=== PATIENT | female | born 1995 ===

== ENCOUNTER 2021-02-11 21:01 | Inpatient (IN) | payer OTHER ==
[2021-02-11] MEDS ORDERED: Ondansetron 4 MG/2 ML SDV IVPUSH PRN (21:05)
[2021-02-11] MEDS ORDERED: Carboprost Tromethamine 250 MCG/1 ML Amp IM PRN (21:05)
[2021-02-11] MEDS ORDERED: Sodium Chloride 0.9% 10 ML Syringe FLUSH PRN (21:05)
[2021-02-11] MEDS ORDERED: Water For Irrigation,Sterile 1,000 ML Container IRR PRN (21:05)
[2021-02-11] MEDS ORDERED: Tranexamic Acid 1,000 MG in Sodium Chloride 0.9% 100 ML IV PRN (21:05)
[2021-02-11] MEDS ORDERED: Methylergonovine 0.2 MG/1 ML Amp IM PRN (21:05)
[2021-02-11] MEDS ORDERED: Sodium Chloride 0.9% 10 ML SDV IV PRN (21:05)
[2021-02-11] MEDS ORDERED: Sodium Chloride 0.9% 2.5 ML Syringe FLUSH PRN (21:05)
[2021-02-11] MEDS ORDERED: Lidocaine 1% 50 ML MDV INJECT PRN (21:05)
[2021-02-11] MEDS ORDERED: Terbutaline 1 MG/ML SDV SUBCUT PRN (21:05)
[2021-02-11] MEDS ORDERED: Nalbuphine 10 MG/1 ML Vial IVPUSH PRN (21:05)
[2021-02-11] MEDS ORDERED: Misoprostol 200 MCG Tab PO PRN (21:05)
[2021-02-11] MEDS ORDERED: Oxytocin/0.9 % Sodium Chloride 30 UNIT/500 ML BAG IV SCH ×2 (21:15)
[2021-02-11] MEDS: Misoprostol 25 MCG (1/4 of 100 MCG) Tab VAG PRN (21:54)
[2021-02-12] MEDS: Misoprostol 25 MCG (1/4 of 100 MCG) Tab VAG PRN ×3 (02:05→10:17)
[2021-02-12] MEDS: Butorphanol 1 MG/ML SDV IVPUSH PRN ×2 (11:49→14:05)
[2021-02-12 12:09] LABS: BLOOD UREA NITROGEN,BUN 8 mg/dL (7.0-18.0); CARBON DIOXIDE,CO2 18.8 mmol/L (21.0-32.0); CHLORIDE,CL 105 mmol/L (98-107); GLUCOSE RANDOM 84 mg/dL (74-106); POTASSIUM,K 4.5 mmol/L (3.5-5.1); SODIUM,NA 139 mmol/L (136-145)
--- NOTE | 2021-02-12 12:37 | PCM.PREANE ---
Preanesthetic Assessment - Anesthesia/Transfusion/Family Hx Anesthesia History: Prior Anesthesia Without Reaction Family History of Anesthesia Reaction: No Transfusion History: No Prior Transfusion(s) - Physical Assessment NPO Status Date: 02/12/21 NPO Status Time: 08:00 Height: 1.55 m Weight: 82.1 kg ASA Class: 2 - Lab Values: Laboratory Last Values WBC 12.00 K/uL (4.0-11.0) H 02/11/21 21: RBC 3.85 M/uL (4.30-5.90) L 02/11/21 21: Hgb 11.8 g/dL (12.0-16.0) L 02/11/21 21: Hct 35.5 % (36.0-46.0) L 02/11/21 21: MCV 92.2 fL (80.0-98.0) 02/11/21 21: MCH 30.6 pg (27.0-32.0) 02/11/21 21: MCHC 33.2 g/dL (31.0-37.0) 02/11/21 21: RDW Std Deviation 42.7 fl (28.0-62.0) 02/11/21 21: RDW Coeff of Mary Lou 13 % (11.0-15.0) 02/11/21 21: Plt Count 305 K/uL (150-400) 02/11/21 21: MPV 11.10 fL (7.40-12.00) 02/11/21 21: Nucleated RBC % 0.0 /100WBC 02/11/21 21: Nucleated RBCs # 0 K/uL 02/11/21 21:33 Sodium 139 mmol/L (136-145) 02/12/21 11:28 Potassium 4.5 mmol/L (3.5-5.1) 02/12/21 11:28 Chloride 105 mmol/L (98-107) 02/12/21 11:28 Carbon Dioxide 18.8 mmol/L (21.0-32.0) L 02/12/21 11:28 BUN 8 mg/dL (7.0-18.0) 02/12/21 11:28 Creatinine 0.7 mg/dL (0.6-1.0) 02/12/21 11:28 Est Cr Clr Drug Dosing 93.51 mL/min 02/12/21 11:28 Estimated GFR (MDRD) > 60.0 ml/min 02/12/21 11:28 Glucose 84 mg/dL (74-106) 02/12/21 11:28 Uric Acid 6.2 mg/dL (2.6-7.2) 02/12/21 11:28 Calcium 8.8 mg/dL (8.5-10.1) 02/12/21 11:28 Total Bilirubin 0.3 mg/dL (0.2-1.0) 02/12/21 11:28 AST 17 IU/L (15-37) 02/12/21 11:28 ALT 20 IU/L (14-63) 02/12/21 11:28 Alkaline Phosphatase 198 U/L (46-116) H 02/12/21 11:28 Total Protein 7.1 g/dL (6.4-8.2) 02/12/21 11:28 Albumin 3.0 g/dL (3.4-5.0) L 02/12/21 11:28 Globulin 4.1 g/dL (2.6-4.0) H 02/12/21 11:28 Albumin/Globulin Ratio 0.7 (0.9-1.6) L 02/12/21 11:28 Blood Type O POSITIVE 02/11/21 21:33 Antibody Screen NEGATIVE 02/11/21 21:33 - Allergies Allergies/Adverse Reactions: Allergies Allergy/AdvReac Type Severity Reaction Status Date / Time nitrofurantoin Allergy Facial Verified 02/10/21 14:49 [From Macrobid] Swelling - Acknowledgements Anesthesia Type Planned: Epidural Pt an Appropriate Candidate for the Planned Anesthesia: Yes Alternatives and Risks of Anesthesia Discussed w Pt/Guardian: Yes Pt/Guardian Understands and Agrees with Anesthesia Plan: Yes PreAnesthesia Questionnaire HEENT History: Reports: None Respiratory History: Reports: Asthma [employer]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: Psychiatric History: Reports: ADHD, Anxiety, Depression - Past Surgical History HEENT Surgical History: Reports: Oral Surgery Respiratory Surgical History: Reports: None - SUBSTANCE USE Tobacco Use Status *Q: Former Tobacco User Tobacco Use Within Last Twelve Months: Cigarettes Recreational Drug Use History: No - CURRENT (IN HOUSE) MEDS Current Meds: Current Medications Butorphanol Tartrate (Butorphanol 1 Mg/Ml Sdv) 1 mg IVPUSH Q1H PRN PRN Reason: Pain (severe 7-10) Last Admin: 02/12/21 11:49 Dose: 1 mg Documented by: Carboprost Tromethamine (Carboprost Tromethamine 250 Mcg/1 Ml Amp) 250 mcg IM ASDIRECTED PRN PRN Reason: Post Hemorrhage Oxytocin/Sodium Chloride (Oxytocin 30 Unit/500 Ml-Ns) 30 unit in 500 mls @ 999 mls/hr IV TITRATE JEEVAN Tranexamic Acid 1,000 mg/ (Sodium Chloride) 110 mls @ 660 mls/hr IV ONETIME PRN PRN Reason: Bleeding Oxytocin/Sodium Chloride (Oxytocin 30 Unit/500 Ml-Ns) 30 unit in 500 mls @ 2 mls/hr IV TITRATE JEEVAN; Protocol Lactated Ringer's (Ringers, Lactated) 1,000 mls @ 150 mls/hr IV ASDIRECTED JEEVAN Lidocaine HCl (Lidocaine 1% 50 Ml Mdv) 50 ml INJECT ONETIME PRN PRN Reason: Laceration repair Methylergonovine Maleate (Methylergonovine 0.2 Mg/1 Ml Amp) 0.2 mg IM ASDIRECTED PRN PRN Reason: Post Hemorrhage Misoprostol (Misoprostol 200 Mcg Tab) 200 mcg PO ONETIME PRN PRN Reason: Post Hemorrhage Misoprostol (Misoprostol 25 Mcg (1/4 Of 100 Mcg) Tab) 25 mcg VAG Q4H PRN PRN Reason: Cervical Ripening Last Admin: 02/12/21 10:17 Dose: 25 mcg Documented by: Nalbuphine HCl (Nalbuphine 10 Mg/1 Ml Vial) 10 mg IVPUSH Q1H PRN PRN Reason: Pain (severe 7-10) Ondansetron HCl (Ondansetron 4 Mg/2 Ml Sdv) 4 mg IVPUSH Q6H PRN PRN Reason: Nausea/Vomiting Last Admin: 02/12/21 11:50 Dose: 4 mg Documented by: Sodium Chloride (Sodium Chloride 0.9% 10 Ml Syringe) 10 ml FLUSH ASDIRECTED PRN PRN Reason: Keep Vein Open Sodium Chloride (Sodium Chloride 0.9% 2.5 Ml Syringe) 2.5 ml FLUSH ASDIRECTED PRN PRN Reason: Keep Vein Open Sodium Chloride (Sodium Chloride 0.9% 10 Ml Sdv) 10 ml IV ASDIRECTED PRN PRN Reason: IV Use Sterile Water (Water For Irrigation,Sterile 1,000 Ml Container) 1,000 ml IRR ASDIRECTED PRN PRN Reason: delivery Terbutaline Sulfate (Terbutaline 1 Mg/Ml Sdv) 0.25 mg SUBCUT ASDIRECTED PRN PRN Reason: Tacysystole
[2021-02-12] MEDS: Lactated Ringers 1,000 ML IV SCH ×2 (14:00→17:25)
[2021-02-12] MEDS ORDERED: fentaNYL 100 MCG/2 ML SDV ONE ×3 (18:30→21:42)
[2021-02-12] MEDS ORDERED: Ropivacaine HCl/PF 200 ML ONE (18:30)
[2021-02-12] MEDS ORDERED: Phenylephrine/Normal Saline 100 MCG/ML 10 ML Syringe IVPUSH PRN (18:56)
[2021-02-12] MEDS ORDERED: ePHEDrine 50 MG/ML SDV IVPUSH PRN (18:56)
--- NOTE | 2021-02-12 18:56 | PCM.PRNOTE ---
- Free Text/Narrative Note: Anes Note Patietn requests epidural for L&D. Sitting position. Level L3-L4 midline appraoch. Sterle technique. Chloraprep scrub to lumbar area. Sterile fenestrated drape applied. Epidural space easily achieved single attempt with ease using ARIANE technique. ARIANE at 3 cm. Cath threaded 5 cm with ease. Cath secured a t skin using sterile clear adhesive dressing. 185 Test 3 cc 1.5% lido with epi negative. 185 Load 10 cc 0.2% ropivicaine with 1 mcg cc fentanyl in slow divided doses. 1857 Pump started wtih 190 cc same solution. Rate is 8 cc hr with 6 cc q 20 min prn bolus. [place] well. Time with patient [id number] Chris Middleton MOLD INJECTOR
[2021-02-12] MEDS ORDERED: Oxytocin 10 Units/1 ML SDV ONE (19:41)
[2021-02-12] MEDS ORDERED: Morphine PF 10 MG/10 ML SDV ONE ×2 (19:41→21:41)
[2021-02-12] MEDS ORDERED: Ondansetron 4 MG/2 ML SDV ONE ×2 (19:45→21:39)
[2021-02-12] MEDS ORDERED: Ketorolac 30 MG/ML SDV ONE ×2 (19:45→21:39)
[2021-02-12] MEDS ORDERED: Sodium Chloride 0.9% 0 ML ONE (19:49)
[2021-02-12] MEDS ORDERED: ceFAZolin 1 GM Vial ONE ×2 (19:49→21:39)
[2021-02-12] MEDS ORDERED: Sugammadex Sodium 200 MG/2 ML VIAL ONE (21:32)
[2021-02-12] MEDS ORDERED: Sodium Chloride 0.9% 20 ML ONE (21:39)
[2021-02-12] MEDS ORDERED: ceFAZolin 2 GM in Premix Bag 1 BAG IV ONE (21:43)
[2021-02-12] MEDS ORDERED: Citric Acid/Sodium Citrate Solution 30 ML Cup PO ONE (21:43)
[2021-02-12] MEDS ORDERED: Lactated Ringers 1,000 ML IV SCH ×2 (21:45→23:00)
[2021-02-12] MEDS ORDERED: Nalbuphine 10 MG/1 ML Vial IVPUSH PRN (22:19)
[2021-02-12] MEDS ORDERED: Oxytocin 10 Units/1 ML SDV IM PRN (22:48)
[2021-02-12] MEDS ORDERED: Bisacodyl 10 MG Supp RECTAL PRN (22:48)
[2021-02-12] MEDS ORDERED: Acetaminophen/oxyCODONE 325-5 MG Tab PO PRN (22:48)
[2021-02-12] MEDS ORDERED: Ondansetron 4 MG/2 ML SDV IVPUSH PRN (22:48)
[2021-02-12] MEDS ORDERED: diphenhydrAMINE 50 MG/ML SDV IVPUSH PRN (22:48)
[2021-02-12] MEDS ORDERED: Lanolin 100% Cream 7 GM Tube TOP PRN (22:48)
--- NOTE | 2021-02-12 22:49 | PCM.POSTAN ---
POST ANESTHESIA ASSESSMENT - MENTAL STATUS Mental Status: Alert - RESPIRATORY Respiratory Status: Respiratory Rate WNL - CARDIOVASCULAR CV Status: Pulse Rate WNL - GASTROINTESTINAL GI Status: No Symptoms - POST OP HYDRATION Hydration Status: Adequate & Stable
--- NOTE | 2021-02-12 22:58 | PCM.OPNOTE ---
- General Post-Op/Procedure Note Date of Surgery/Procedure: 02/12/21 Operative Procedure(s): Primary LTCS Findings: Viable male APGARs 8, 9 weight 5 lb 13 oz. Delivery intact placenta with 3V cord Pre Op Diagnosis: 39/2 week IUP. Gestational HTN. Breech presentation Post-Op Diagnosis: Same Anesthesia Technique: Epidural Primary Surgeon: Andreina Ray Fluid Replacement, Intraop: 1,500 EBL in mLs: 600 Complications: none known Condition: Stable Free Text/Narrative:: Intake & Output 02/12/21 02/12/21 02/12/21 06:59 14:59 22:59 Output Total Balance @ Dictation [id number]
[2021-02-13] MEDS: Ketorolac 30 MG/ML SDV IVPUSH SCH ×5 (00:21→23:42)
[2021-02-13] MEDS: Lactated Ringers 1,000 ML IV SCH (00:45)
[2021-02-13] MEDS: Simethicone 80 MG Tab.Chew PO SCH ×5 (00:51→23:42)
--- NOTE | 2021-02-13 05:23 | OR ---
SURGEON: Andreina Ray M.D. DATE OF PROCEDURE: 02/12/2021 PREOPERATIVE DIAGNOSES: 1. A 39 and 2 weeks' intrauterine . 2. Breech presentation. 3. Gestational hypertension. POSTOPERATIVE DIAGNOSES: 1. A 39 and 2 weeks' intrauterine . 2. Breech presentation. 3. Gestational hypertension. PROCEDURE: Primary low-transverse section. PRIMARY SURGEON: Andreina Ray M.D. ANESTHESIA: Epidural. ESTIMATED BLOOD LOSS: 600 mL. FLUIDS: 1500 mL of crystalloid in the OR. COMPLICATION: None known. FINDINGS: Viable male, Apgars scores 8 at 1 minute and 9 at 5 minutes. Weight is 5 pounds 13 ounces. Delivery of an intact placenta with a 3-vessel cord. DISPOSITION: to the nursery and mom to the PACU in stable condition. PROCEDURE DETAILS: This is a 26-year-old primigravida at 39-2/7 weeks' gestational age, who actually presented on 02/11/2021 for induction of labor due to gestational hypertension. She had been induced with Cytotec and then a Terrell bulb for mechanical dilation. I assumed care on the evening of 02/12/2021. When the Terrell bulb did extravasate, I examined the patient. I could not easily palpate suture lines or cephalic presentation with a bulging bag of water. The patient was found to be 4 to 5 cm dilated; therefore, I performed a bedside ultrasound, which confirmed the fetus to be breech presentation, head at the maternal right. At this juncture, I had discussed with the patient, given the fact that she was already 4 to 5 cm with bulging membranes, it would be best to proceed with a delivery and not attempt external cephalic version. She voiced her understanding of this. She agreed to proceed with a delivery. Risks of the procedure were discussed with her, including infection; bleeding; possible trauma to surrounding bowel, bladder, or ureters; in case of excessive blood loss, need for blood transfusion; in rare lifesaving circumstances, need for hysterectomy; risk for a thromboembolic event; and risk of anesthesia. Proper consent was obtained. The patient was taken to the operating room, where her epidural was re-bolused. She was placed in dorsal supine position with a leftward tilt, SCDs to the lower extremities, Terrell to gravity, and prepped and draped in the usual sterile fashion. Anesthesia was tested and found to be adequate. A Pfannenstiel incision was now incised and carried down to the level of the rectus fascia, which was incised in the midline and lateralized on either side. The superior aspect of the fascia was tented up and dissected sharply and bluntly away from underlying muscles. In a similar fashion, this was performed on the inferior aspect of the fascia. The rectus muscle was and the peritoneum entered. The rectus muscle and peritoneum were now lateralized bluntly. position and uterine position were palpated. A self-retaining retractor was gently placed. The uterovesical reflection was visualized. A bladder flap was created sharply and bluntly. The bladder was mobilized away from the lower uterine segment. A low transverse hysterotomy was now performed. The uterine cavity was entered with a blunt-ended scalpel. The hysterotomy was lateralized bluntly. The buttocks were delivered to the midline. The buttocks were delivered, followed by the right lower extremity, the left lower extremity, the trunk, the right upper extremity, and the left upper extremity. The head was flexed and delivered. The infant's oropharynx and nares were bulb suctioned. The cord was clamped x2 and cut. The infant was handed off to the attending independent living specialist with nursery staff. Cord arterial, cord venous, and cord blood samplings were obtained. The placenta was now delivered. The uterine cavity was cleared of all clot and debris. The hysterotomy was repaired using 0 Vicryl in a continuous running locked fashion, followed by a re-imbricating layer. The posterior aspect of the uterus was inspected. No defects or hematomas were found to be forming. The region was well irrigated and suction dried. The uterus was returned to the abdominal cavity. Colonic gutters were cleared of all clot and debris, well irrigated, and suction dried. The hysterotomy was again inspected. Any areas of oozing were cauterized. Hemostasis appeared evident. A self-retaining retractor was now gently placed. A bladder blade was placed. The hysterotomy was once again inspected and found to be hemostatic. The rectus muscles and peritoneum were now reapproximated using 0 Vicryl in an inverted mattress suture technique. The anterior aspect of the muscle and the posterior aspect of the fascia were closely inspected. Any areas of oozing were cauterized. The rectus fascia was reapproximated using 0 Vicryl in a continuous running fashion, beginning laterally on either side and meeting in the midline. Subcutaneous tissue was well irrigated and suction dried. Any areas of oozing were cauterized. Skin edges were reapproximated using 3-0 Vicryl on a Dale needle in a subcuticular fashion, followed by half-inch Steri-Strips and Mastisol for re-imbrication. Sponge, instrument, and needle counts were correct x2. The patient has tolerated the procedure well overall. She will go to the PACU in stable condition. We will monitor blood pressures closely. They have been stable during the perioperative period. DANI / KAYLYNN /[id number]
--- NOTE | 2021-02-13 07:33 | PCM48HPAN ---
Post Anesthesia Note - EVALUATION WITHIN 48HRS OF ANESTHETIC Vital Signs in Normal Range: Yes Patient Participated in Evaluation: Yes Respiratory Function Stable: Yes Airway Patent: Yes Cardiovascular Function Stable: Yes Hydration Status Stable: Yes Pain Control Satisfactory: Yes Nausea and Vomiting Control Satisfactory: Yes Mental Status Recovered: Yes Vital Signs: Last Vital Signs Temp 35.2 C L 02/13/21 06:00 Pulse 73 02/13/21 06:00 Resp 20 02/13/21 06:00 BP 114/68 02/13/21 06:00 Pulse Ox 97 02/13/21 06:00
--- NOTE | 2021-02-13 08:19 | PCM.PNPP ---
- General Info Date of Service: 02/13/21 Subjective Update: Patient doing well since delivery. Latching is going really well. Stewart still in place. Functional Status: Reports: Pain Controlled, Tolerating Diet - Review of Systems General: Reports: No Symptoms HEENT: Reports: No Symptoms Pulmonary: Reports: No Symptoms Cardiovascular: Reports: No Symptoms Gastrointestinal: Reports: No Symptoms Genitourinary: Reports: No Symptoms Musculoskeletal: Reports: No Symptoms Skin: Reports: No Symptoms Neurological: Reports: No Symptoms Psychiatric: Reports: No Symptoms - Patient Data Vital Signs - Most Recent: Last Vital Signs Temp 35.2 C L 02/13/21 06:00 Pulse 73 02/13/21 06:00 Resp 17 02/13/21 07:00 BP 114/68 02/13/21 06:00 Pulse Ox 99 02/13/21 07:00 Weight - Most Recent: 82.1 kg I&O - Last 24 Hours: Intake & Output 02/12/21 02/13/21 02/13/21 22:59 06:59 14:59 Intake Total 1500 1650 Output Total 50 500 1600 Balance 1016 1150 -1600 Lab Results - Last 24 Hours: Laboratory Results - last 24 hr 02/12/21 02/12/21 02/12/21 Range/Units 11:25 11:28 22:06 Hgb (12.0-16.0) g/dL Hct (36.0-46.0) % Cord ABG pH QNS Cord ABG Base Excess QNS Cord VBG pH 7.310 (7.25-7.45) Cord VBG Base Excess -4 (-10--2) Sodium 139 (136-145) mmol/L Potassium 4.5 (3.5-5.1) mmol/L Chloride 105 (98-107) mmol/L Carbon Dioxide 18.8 L (21.0-32.0) mmol/L BUN 8 (7.0-18.0) mg/dL Creatinine 0.7 (0.6-1.0) mg/dL Est Cr Clr Drug Dosing 93.51 mL/min Estimated GFR (MDRD) > 60.0 ml/min Glucose 84 (74-106) mg/dL Uric Acid 6.2 (2.6-7.2) mg/dL Calcium 8.8 (8.5-10.1) mg/dL Total Bilirubin 0.3 (0.2-1.0) mg/dL AST 17 (15-37) IU/L ALT 20 (14-63) IU/L Alkaline Phosphatase 198 H (46-116) U/L Total Protein 7.1 (6.4-8.2) g/dL Albumin 3.0 L (3.4-5.0) g/dL Globulin 4.1 H (2.6-4.0) g/dL Albumin/Globulin Ratio 0.7 L (0.9-1.6) Ur Random Creatinine 37.0 mg/dL U Random Total Protein 6.2 (<11.9) mg/dL Protein/Creatinin Ratio 0.2 02/13/21 Range/Units 05:12 Hgb 10.4 L (12.0-16.0) g/dL Hct 31.1 L (36.0-46.0) % Cord ABG pH Cord ABG Base Excess Cord VBG pH (7.25-7.45) Cord VBG Base Excess (-10--2) Sodium (136-145) mmol/L Potassium (3.5-5.1) mmol/L Chloride (98-107) mmol/L Carbon Dioxide (21.0-32.0) mmol/L BUN (7.0-18.0) mg/dL Creatinine (0.6-1.0) mg/dL Est Cr Clr Drug Dosing mL/min Estimated GFR (MDRD) ml/min Glucose (74-106) mg/dL Uric Acid (2.6-7.2) mg/dL Calcium (8.5-10.1) mg/dL Total Bilirubin (0.2-1.0) mg/dL AST (15-37) IU/L ALT (14-63) IU/L Alkaline Phosphatase (46-116) U/L Total Protein (6.4-8.2) g/dL Albumin (3.4-5.0) g/dL Globulin (2.6-4.0) g/dL Albumin/Globulin Ratio (0.9-1.6) Ur Random Creatinine mg/dL U Random Total Protein (<11.9) mg/dL Protein/Creatinin Ratio Med Orders - Current: Current Medications Bisacodyl (Bisacodyl 10 Mg Supp) 10 mg RECTAL ONETIME PRN PRN Reason: Constipation Butorphanol Tartrate (Butorphanol 1 Mg/Ml Sdv) 1 mg IVPUSH Q1H PRN PRN Reason: Pain (severe 7-10) Last Admin: 02/12/21 14:05 Dose: 1 mg Documented by: Diphenhydramine HCl (Diphenhydramine 50 Mg/Ml Sdv) 25 mg IVPUSH Q6H PRN PRN Reason: Itching or Nausea Docusate Sodium (Docusate Sodium 100 Mg Cap) 100 mg PO BID [facility] Emollient Ointment (Lanolin 100% Cream 7 Gm Tube) 0 gm TOP ASDIRECTED PRN PRN Reason: Sore Nipples Ephedrine Sulfate (Ephedrine 50 Mg/Ml Sdv) 10 mg IVPUSH Q5M PRN PRN Reason: Hypotension Oxytocin/Sodium Chloride (Oxytocin 30 Unit/500 Ml-Ns) 30 unit in 500 mls @ 999 mls/hr IV TITRATE [facility] Tranexamic Acid 1,000 mg/ (Sodium Chloride) 110 mls @ 660 mls/hr IV ONETIME PRN PRN Reason: Bleeding Lactated Ringer's (Ringers, Lactated) 1,000 mls @ 150 mls/hr IV ASDIRECTED [facility] Last Admin: 02/13/21 00:45 Dose: 150 mls/hr Documented by: Lactated Ringer's (Ringers, Lactated) 1,000 mls @ 500 mls/hr IV BOLUS JEEVAN Lactated Ringer's (Ringers, Lactated) 1,000 mls @ 125 mls/hr IV ASDIRECTED [facility] Ibuprofen (Ibuprofen 800 Mg Tab) 800 mg PO Q8H PRN PRN Reason: mild pain or fever Ketorolac Tromethamine (Ketorolac 30 Mg/Ml Sdv) 30 mg IVPUSH Q6H [facility] Stop: 02/13/21 23:01 Last Admin: 02/13/21 06:04 Dose: 30 mg Documented by: Lidocaine HCl (Lidocaine 1% 50 Ml Mdv) 50 ml INJECT ONETIME PRN PRN Reason: Laceration repair Nalbuphine HCl (Nalbuphine 10 Mg/1 Ml Vial) 10 mg IVPUSH Q1H PRN PRN Reason: Pain (severe 7-10) Nalbuphine HCl (Nalbuphine 10 Mg/1 Ml Vial) 5 mg IVPUSH Q3H PRN PRN Reason: Pruritis Stop: 02/13/21 22:19 Ondansetron HCl (Ondansetron 4 Mg/2 Ml Sdv) 4 mg IVPUSH Q6H PRN PRN Reason: Nausea/Vomiting Last Admin: 02/12/21 11:50 Dose: 4 mg Documented by: Ondansetron HCl (Ondansetron 4 Mg/2 Ml Sdv) 4 mg IVPUSH Q4H PRN PRN Reason: Nausea/Vomiting Oxycodone/Acetaminophen (Acetaminophen/Oxycodone 325-5 Mg Tab) 1 tab PO Q4H PRN PRN Reason: Pain (severe 7-10) Oxycodone/Acetaminophen (Acetaminophen/Oxycodone 325-5 Mg Tab) 2 tab PO Q4H PRN PRN Reason: Pain (severe 7-10) Oxytocin (Oxytocin 10 Units/1 Ml Sdv) 10 unit IM ASDIRECTED PRN PRN Reason: Excessive Vaginal Bleeding Phenylephrine HCl (Phenylephrine/Normal Saline 100 Mcg/Ml 10 Ml Syringe) 0.1 mg IVPUSH Q5M PRN PRN Reason: Hypotension Simethicone (Simethicone 80 Mg Tab.Chew) 160 mg PO QID JEEVAN Last Admin: 02/13/21 06:06 Dose: 160 mg Documented by: Sodium Chloride (Sodium Chloride 0.9% 10 Ml Syringe) 10 ml FLUSH ASDIRECTED PRN PRN Reason: Keep Vein Open Sodium Chloride (Sodium Chloride 0.9% 2.5 Ml Syringe) 2.5 ml FLUSH ASDIRECTED PRN PRN Reason: Keep Vein Open Sodium Chloride (Sodium Chloride 0.9% 10 Ml Sdv) 10 ml IV ASDIRECTED PRN PRN Reason: IV Use Terbutaline Sulfate (Terbutaline 1 Mg/Ml Sdv) 0.25 mg SUBCUT ASDIRECTED PRN PRN Reason: Tacysystole Discontinued Medications Carboprost Tromethamine (Carboprost Tromethamine 250 Mcg/1 Ml Amp) 250 mcg IM ASDIRECTED PRN PRN Reason: Post Hemorrhage Cefazolin Sodium (Cefazolin 1 Gm Vial) Confirm Administered Dose 2 gm .ROUTE .STK-MED ONE Stop: 02/12/21 19:50 Cefazolin Sodium (Cefazolin 1 Gm Vial) Confirm Administered Dose 2 gm .ROUTE .STK-MED ONE Stop: 02/12/21 21:40 Citric Acid/Sodium Citrate (Citric Acid/Sodium Citrate Solution 30 Ml Cup) 30 ml PO ONETIME ONE Stop: 02/12/21 21:44 Last Admin: 02/13/21 00:21 Dose: Not Given Documented by: Fentanyl (Fentanyl 100 Mcg/2 Ml Sdv) Confirm Administered Dose 200 mcg .ROUTE .STK-MED ONE Stop: 02/12/21 18:31 Last Admin: 02/12/21 20:55 Dose: Not Given Documented by: Fentanyl (Fentanyl 100 Mcg/2 Ml Sdv) Confirm Administered Dose 100 mcg .ROUTE .STK-MED ONE Stop: 02/12/21 19:47 Fentanyl (Fentanyl 100 Mcg/2 Ml Sdv) Confirm Administered Dose 100 mcg .ROUTE .STK-MED ONE Stop: 02/12/21 21:43 Oxytocin/Sodium Chloride (Oxytocin 30 Unit/500 Ml-Ns) 30 unit in 500 mls @ 2 mls/hr IV TITRATE JEEVAN; Protocol Last Titration: 02/12/21 19:04 Dose: 0 munits/min, 0 mls/hr Documented by: Ropivacaine (Naropin 0.2%) Confirm Administered Dose 200 mls @ as directed .ROUTE .ST-MED ONE Stop: 02/12/21 18:31 Last Admin: 02/12/21 20:55 Dose: Not Given Documented by: Sodium Chloride (Normal Saline) Confirm Administered Dose 20 mls @ as directed .ROUTE .ST-MED ONE Stop: 02/12/21 19:50 Sodium Chloride (Normal Saline) Confirm Administered Dose 20 mls @ as directed .ROUTE .[facility]-MED ONE Stop: 02/12/21 21:40 Cefazolin Sodium/Dextrose 2 gm (/ Premix) 50 mls @ 100 mls/hr IV ONETIME ONE Stop: 02/12/21 22:12 Last Admin: 02/13/21 00:21 Dose: Not Given Documented by: Ketorolac Tromethamine (Ketorolac 30 Mg/Ml Sdv) Confirm Administered Dose 30 mg .ROUTE .STK-MED ONE Stop: 02/12/21 19:46 Ketorolac Tromethamine (Ketorolac 30 Mg/Ml Sdv) Confirm Administered Dose 30 mg .ROUTE .ST-MED ONE Stop: 02/12/21 21:40 Methylergonovine Maleate (Methylergonovine 0.2 Mg/1 Ml Amp) 0.2 mg IM ASDIRECTED PRN PRN Reason: Post Hemorrhage Misoprostol (Misoprostol 200 Mcg Tab) 200 mcg PO ONETIME PRN PRN Reason: Post Hemorrhage Misoprostol (Misoprostol 25 Mcg (1/4 Of 100 Mcg) Tab) 25 mcg VAG Q4H PRN PRN Reason: Cervical Ripening Last Admin: 02/12/21 10:17 Dose: 25 mcg Documented by: Morphine Sulfate (Morphine Pf 10 Mg/10 Ml Sdv) Confirm Administered Dose 10 mg .ROUTE .STK-MED ONE Stop: 02/12/21 19:42 Morphine Sulfate (Morphine Pf 10 Mg/10 Ml Sdv) Confirm Administered Dose 10 mg .ROUTE .STK-MED ONE Stop: 02/12/21 21:42 Ondansetron HCl (Ondansetron 4 Mg/2 Ml Sdv) Confirm Administered Dose 4 mg .ROUTE .STK-MED ONE Stop: 02/12/21 19:46 Ondansetron HCl (Ondansetron 4 Mg/2 Ml Sdv) Confirm Administered Dose 4 mg .ROUTE .STK-MED ONE Stop: 02/12/21 21:40 Oxytocin (Oxytocin 10 Units/1 Ml Sdv) Confirm Administered Dose 20 unit .ROUTE .STK-MED ONE Stop: 02/12/21 19:42 Sterile Water (Water For Irrigation,Sterile 1,000 Ml Container) 1,000 ml IRR ASDIRECTED PRN PRN Reason: delivery Sugammadex Sodium (Sugammadex Sodium 200 Mg/2 Ml Vial) Confirm Administered Dose 200 mg .ROUTE .STK-MED ONE Stop: 02/12/21 21:33 - Infant Interaction Disposition, : in Room with Family Infant Interaction: Holding Infant Infant Feeding: Breastfed Infant; Nursed Well Support Person: Mother, Significant Other - Recovery Exam Fundal Tone: Firm Fundal Level: 1 Fingerbreadths Below Umbilicus Fundal Placement: Midline Lochia Amount: Scant Lochia Color: Rubra/Red Perineum Description: Intact, Minimal Bruising/Swelling Episiotomy/Laceration: None Bladder Status: Indwelling Catheter in Place Urinary Elimination: Indwelling Catheter - Exam General: Alert, Oriented Neck: Supple Lungs: Normal Respiratory Effort GI/Abdominal Exam: Soft, Non-Tender, No Distention Extremities: Non-Tender Skin: Warm, Dry, Intact Wound/Incisions: Dressing Dry and Intact Neurological: No New Focal Deficit Psy/Mental Status: Alert, Normal Affect, Normal Mood - Problem List & Annotations (1) S/P primary low transverse SNOMED Code(s): 015332325, [id number], 631422734, [id number], [id number] Code(s): Z98.891 - HISTORY OF UTERINE SCAR FROM PREVIOUS SURGERY Status: Acute Current Visit: Yes (2) Gestational hypertension SNOMED Code(s): 572188569 Code(s): O13.9 - GESTATIONAL HTN W/O SIGNIFICANT PROTEINURIA, UNSP TRIMESTER Status: Acute Current Visit: Yes - Problem List Review Problem List Initiated/Reviewed/Updated: Yes - Assessment Assessment:: 26yo s/p 1LTCS, POD#1 - Plan Plan:: 1. Continue routine care. D/C stewart today. Encourage ambulation. 2. Monitor BP due to gestational hypertension. 3. Desires circumcision for infant prior to discharge. 4. Likely discharge home tomorrow if meeting all post-op milestones.
[2021-02-13] MEDS: Docusate Sodium 100 MG Cap PO SCH ×2 (10:41→21:07)
[2021-02-13] MEDS: Acetaminophen/oxyCODONE 325-5 MG Tab PO PRN (22:24)
[2021-02-14] MEDS: Acetaminophen/oxyCODONE 325-5 MG Tab PO PRN ×4 (04:34→20:06)
[2021-02-14] MEDS: Simethicone 80 MG Tab.Chew PO SCH ×3 (06:06→18:18)
--- NOTE | 2021-02-14 06:39 | PCM.PNPP ---
- General Info Date of Service: 02/14/21 Subjective Update: Patient doing well since delivery. Latching is going really well. Voiding without difficulty. Functional Status: Reports: Pain Controlled, Tolerating Diet, Ambulating, Urinating - Review of Systems General: Reports: No Symptoms HEENT: Reports: No Symptoms Pulmonary: Reports: No Symptoms Cardiovascular: Reports: No Symptoms Gastrointestinal: Reports: No Symptoms Genitourinary: Reports: No Symptoms Musculoskeletal: Reports: No Symptoms Skin: Reports: No Symptoms Neurological: Reports: No Symptoms Psychiatric: Reports: No Symptoms - Patient Data Vital Signs - Most Recent: Last Vital Signs Temp 35.6 C L 02/14/21 04:27 Pulse 54 L 02/14/21 04:27 Resp 15 02/14/21 04:27 BP 115/67 02/14/21 04:27 Pulse Ox 96 02/14/21 04:27 Weight - Most Recent: 82.1 kg I&O - Last 24 Hours: Intake & Output 02/13/21 02/13/21 02/14/21 14:59 22:59 06:59 Output Total 160 200 Balance -160 -200 Lab Results - Last 24 Hours: Laboratory Results - last 24 hr 02/11/21 Range/Units 21:33 RPR Non-Reac (Non-Reac) Med Orders - Current: Current Medications Bisacodyl (Bisacodyl 10 Mg Supp) 10 mg RECTAL ONETIME PRN PRN Reason: Constipation Butorphanol Tartrate (Butorphanol 1 Mg/Ml Sdv) 1 mg IVPUSH Q1H PRN PRN Reason: Pain (severe 7-10) Last Admin: 02/12/21 14:05 Dose: 1 mg Documented by: Diphenhydramine HCl (Diphenhydramine 50 Mg/Ml Sdv) 25 mg IVPUSH Q6H PRN PRN Reason: Itching or Nausea Docusate Sodium (Docusate Sodium 100 Mg Cap) 100 mg PO BID [facility]EE[facility]AN Last Admin: 02/13/21 21:07 Dose: 100 mg Documented by: Emollient Ointment (Lanolin 100% Cream 7 Gm Tube) 0 gm TOP ASDIRECTED PRN PRN Reason: Sore Nipples Ephedrine Sulfate (Ephedrine 50 Mg/Ml Sdv) 10 mg IVPUSH Q5M PRN PRN Reason: Hypotension Oxytocin/Sodium Chloride (Oxytocin 30 Unit/500 Ml-Ns) 30 unit in 500 mls @ 999 mls/hr IV TITRATE [facility] Tranexamic Acid 1,000 mg/ (Sodium Chloride) 110 mls @ 660 mls/hr IV ONETIME PRN PRN Reason: Bleeding Lactated Ringer's (Ringers, Lactated) 1,000 mls @ 150 mls/hr IV ASDIRECTED [facility] Last Admin: 02/13/21 00:45 Dose: 150 mls/hr Documented by: Lactated Ringer's (Ringers, Lactated) 1,000 mls @ 500 mls/hr IV BOLUS JEEVAN Lactated Ringer's (Ringers, Lactated) 1,000 mls @ 125 mls/hr IV ASDIRECTED [facility] Ibuprofen (Ibuprofen 800 Mg Tab) 800 mg PO Q8H PRN PRN Reason: mild pain or fever Lidocaine HCl (Lidocaine 1% 50 Ml Mdv) 50 ml INJECT ONETIME PRN PRN Reason: Laceration repair Nalbuphine HCl (Nalbuphine 10 Mg/1 Ml Vial) 10 mg IVPUSH Q1H PRN PRN Reason: Pain (severe 7-10) Ondansetron HCl (Ondansetron 4 Mg/2 Ml Sdv) 4 mg IVPUSH Q6H PRN PRN Reason: Nausea/Vomiting Last Admin: 02/12/21 11:50 Dose: 4 mg Documented by: Ondansetron HCl (Ondansetron 4 Mg/2 Ml Sdv) 4 mg IVPUSH Q4H PRN PRN Reason: Nausea/Vomiting Oxycodone/Acetaminophen (Acetaminophen/Oxycodone 325-5 Mg Tab) 1 tab PO Q4H PRN PRN Reason: Pain (severe 7-10) Last Admin: 02/14/21 04:34 Dose: 1 tab Documented by: Oxycodone/Acetaminophen (Acetaminophen/Oxycodone 325-5 Mg Tab) 2 tab PO Q4H PRN PRN Reason: Pain (severe 7-10) Oxytocin (Oxytocin 10 Units/1 Ml Sdv) 10 unit IM ASDIRECTED PRN PRN Reason: Excessive Vaginal Bleeding Phenylephrine HCl (Phenylephrine/Normal Saline 100 Mcg/Ml 10 Ml Syringe) 0.1 mg IVPUSH Q5M PRN PRN Reason: Hypotension Simethicone (Simethicone 80 Mg Tab.Chew) 160 mg PO QID [facility] Last Admin: 02/14/21 06:06 Dose: 160 mg Documented by: Sodium Chloride (Sodium Chloride 0.9% 10 Ml Syringe) 10 ml FLUSH ASDIRECTED PRN PRN Reason: Keep Vein Open Sodium Chloride (Sodium Chloride 0.9% 2.5 Ml Syringe) 2.5 ml FLUSH ASDIRECTED PRN PRN Reason: Keep Vein Open Sodium Chloride (Sodium Chloride 0.9% 10 Ml Sdv) 10 ml IV ASDIRECTED PRN PRN Reason: IV Use Terbutaline Sulfate (Terbutaline 1 Mg/Ml Sdv) 0.25 mg SUBCUT ASDIRECTED PRN PRN Reason: Tacysystole Discontinued Medications Carboprost Tromethamine (Carboprost Tromethamine 250 Mcg/1 Ml Amp) 250 mcg IM ASDIRECTED PRN PRN Reason: Post Hemorrhage Cefazolin Sodium (Cefazolin 1 Gm Vial) Confirm Administered Dose 2 gm .ROUTE .STK-MED ONE Stop: 02/12/21 19:50 Cefazolin Sodium (Cefazolin 1 Gm Vial) Confirm Administered Dose 2 gm .ROUTE .STK-MED ONE Stop: 02/12/21 21:40 Citric Acid/Sodium Citrate (Citric Acid/Sodium Citrate Solution 30 Ml Cup) 30 ml PO ONETIME ONE Stop: 02/12/21 21:44 Last Admin: 02/13/21 00:21 Dose: Not Given Documented by: Fentanyl (Fentanyl 100 Mcg/2 Ml Sdv) Confirm Administered Dose 200 mcg .ROUTE .STK-MED ONE Stop: 02/12/21 18:31 Last Admin: 02/12/21 20:55 Dose: Not Given Documented by: Fentanyl (Fentanyl 100 Mcg/2 Ml Sdv) Confirm Administered Dose 100 mcg .ROUTE .STK-MED ONE Stop: 02/12/21 19:47 Fentanyl (Fentanyl 100 Mcg/2 Ml Sdv) Confirm Administered Dose 100 mcg .ROUTE .STK-MED ONE Stop: 02/12/21 21:43 Oxytocin/Sodium Chloride (Oxytocin 30 Unit/500 Ml-Ns) 30 unit in 500 mls @ 2 mls/hr IV TITRATE [facility]EE[facility]; Protocol Last Titration: 02/12/21 19:04 Dose: 0 munits/min, 0 mls/hr Documented by: Ropivacaine (Naropin 0.2%) Confirm Administered Dose 200 mls @ as directed .ROUTE .STK-MED ONE Stop: 02/12/21 18:31 Last Admin: 02/12/21 20:55 Dose: Not Given Documented by: Sodium Chloride (Normal Saline) Confirm Administered Dose 20 mls @ as directed .ROUTE .STK-MED ONE Stop: 02/12/21 19:50 Sodium Chloride (Normal Saline) Confirm Administered Dose 20 mls @ as directed .ROUTE .STK-MED ONE Stop: 02/12/21 21:40 Cefazolin Sodium/Dextrose 2 gm (/ Premix) 50 mls @ 100 mls/hr IV ONETIME ONE Stop: 02/12/21 22:12 Last Admin: 02/13/21 00:21 Dose: Not Given Documented by: Ketorolac Tromethamine (Ketorolac 30 Mg/Ml Sdv) Confirm Administered Dose 30 mg .ROUTE .STK-MED ONE Stop: 02/12/21 19:46 Ketorolac Tromethamine (Ketorolac 30 Mg/Ml Sdv) Confirm Administered Dose 30 mg .ROUTE .ST-MED ONE Stop: 02/12/21 21:40 Ketorolac Tromethamine (Ketorolac 30 Mg/Ml Sdv) 30 mg IVPUSH Q6H [facility]EE[facility]AN Stop: 02/13/21 23:01 Last Admin: 02/13/21 23:42 Dose: 30 mg Documented by: Methylergonovine Maleate (Methylergonovine 0.2 Mg/1 Ml Amp) 0.2 mg IM ASD IRECTED PRN PRN Reason: Post Hemorrhage Misoprostol (Misoprostol 200 Mcg Tab) 200 mcg PO ONETIME PRN PRN Reason: Post Hemorrhage Misoprostol (Misoprostol 25 Mcg (1/4 Of 100 Mcg) Tab) 25 mcg VAG Q4H PRN PRN Reason: Cervical Ripening Last Admin: 02/12/21 10:17 Dose: 25 mcg Documented by: Morphine Sulfate (Morphine Pf 10 Mg/10 Ml Sdv) Confirm Administered Dose 10 mg .ROUTE .STK-MED ONE Stop: 02/12/21 19:42 Morphine Sulfate (Morphine Pf 10 Mg/10 Ml Sdv) Confirm Administered Dose 10 mg .ROUTE .STK-MED ONE Stop: 02/12/21 21:42 Nalbuphine HCl (Nalbuphine 10 Mg/1 Ml Vial) 5 mg IVPUSH Q3H PRN PRN Reason: Pruritis Stop: 02/13/21 22:19 Ondansetron HCl (Ondansetron 4 Mg/2 Ml Sdv) Confirm Administered Dose 4 mg .ROUTE .STK-MED ONE Stop: 02/12/21 19:46 Ondansetron HCl (Ondansetron 4 Mg/2 Ml Sdv) Confirm Administered Dose 4 mg .ROUTE .STK-MED ONE Stop: 02/12/21 21:40 Oxytocin (Oxytocin 10 Units/1 Ml Sdv) Confirm Administered Dose 20 unit .ROUTE .STK-MED ONE Stop: 02/12/21 19:42 Sterile Water (Water For Irrigation,Sterile 1,000 Ml Container) 1,000 ml IRR ASDIRECTED PRN PRN Reason: delivery Sugammadex Sodium (Sugammadex Sodium 200 Mg/2 Ml Vial) Confirm Administered Dose 200 mg .ROUTE .STK-MED ONE Stop: 02/12/21 21:33 - Interaction Disposition, : in Room with Family Infant Interaction: Holding Feeding: Breastfed ; Nursed Well Support Person: Mother, Significant Other - Recovery Exam Fundal Tone: Firm Fundal Level: 1 Fingerbreadths Below Umbilicus Fundal Placement: Midline Lochia Amount: Scant Lochia Color: Rubra/Red Bladder Status: Voiding Urinary Elimination: Voided - Exam General: Alert, Oriented Neck: Supple Lungs: Normal Respiratory Effort GI/Abdominal Exam: Soft, Non-Tender, No Distention Extremities: Non-Tender, No Pedal Edema Skin: Warm, Dry, Intact Wound/Incisions: Healing Well Neurological: No New Focal Deficit Psy/Mental Status: Alert, Normal Affect, Normal Mood - Problem List & Annotations (1) S/P primary low transverse SNOMED Code(s): 384550244, 98512878, 641807759, 350009271, 771717668 Code(s): Z98.891 - HISTORY OF UTERINE SCAR FROM PREVIOUS SURGERY Status: Acute Current Visit: Yes (2) Gestational hypertension SNOMED Code(s): 899599461 Code(s): O13.9 - GESTATIONAL HTN W/O SIGNIFICANT PROTEINURIA, UNSP TRIMESTER Status: Acute Current Visit: Yes - Problem List Review Problem List Initiated/Reviewed/Updated: Yes - My Orders Last 24 Hours: My Active Orders 02/14/21 06:36 Ready for Discharge [RC] PER UNIT ROUTINE - Assessment Assessment:: 26yo s/p 1LTCS, POD#2 - Plan Plan:: 1. Continue routine care. 2. Monitor BP due to gestational hypertension. 3. Discharge home today with incision check in 2 weeks. Reviewed discharge instructions/precautions. All questions answered.
[2021-02-14] MEDS: Docusate Sodium 100 MG Cap PO SCH ×2 (09:02→20:06)
[2021-02-14] MEDS: Ibuprofen 800 MG Tab PO PRN ×2 (12:55→21:39)
[2021-02-15] MEDS: Acetaminophen/oxyCODONE 325-5 MG Tab PO PRN ×2 (03:20→08:11)
[2021-02-15] MEDS: Simethicone 80 MG Tab.Chew PO SCH ×2 (06:12)
[2021-02-15] MEDS: Docusate Sodium 100 MG Cap PO SCH (08:10)
[2021-02-15] MEDS: Ibuprofen 800 MG Tab PO PRN (08:10)
--- NOTE | 2021-02-15 08:22 | PCM.PNPP ---
- General Info Date of Service: 02/15/21 Subjective Update: Patient currently sleeping. No issues overnight. Functional Status: Reports: Pain Controlled, Tolerating Diet, Ambulating, Urinating - Review of Systems General: Reports: No Symptoms HEENT: Reports: No Symptoms Pulmonary: Reports: No Symptoms Cardiovascular: Reports: No Symptoms Gastrointestinal: Reports: No Symptoms Genitourinary: Reports: No Symptoms Musculoskeletal: Reports: No Symptoms Skin: Reports: No Symptoms Neurological: Reports: No Symptoms Psychiatric: Reports: No Symptoms - Patient Data Vital Signs - Most Recent: Last Vital Signs Temp 35.2 C L 02/15/21 08:15 Pulse 64 02/15/21 08:15 Resp 18 02/15/21 08:15 BP 143/70 H 02/15/21 08:15 Pulse Ox 98 02/15/21 08:15 Weight - Most Recent: 82.1 kg Med Orders - Current: Current Medications Bisacodyl (Bisacodyl 10 Mg Supp) 10 mg RECTAL ONETIME PRN PRN Reason: Constipation Butorphanol Tartrate (Butorphanol 1 Mg/Ml Sdv) 1 mg IVPUSH Q1H PRN PRN Reason: Pain (severe 7-10) Last Admin: 02/12/21 14:05 Dose: 1 mg Documented by: Diphenhydramine HCl (Diphenhydramine 50 Mg/Ml Sdv) 25 mg IVPUSH Q6H PRN PRN Reason: Itching or Nausea Docusate Sodium (Docusate Sodium 100 Mg Cap) 100 mg PO BID [facility] Last Admin: 02/15/21 08:10 Dose: 100 mg Documented by: Emollient Ointment (Lanolin 100% Cream 7 Gm Tube) 0 gm TOP ASDIRECTED PRN PRN Reason: Sore Nipples Ephedrine Sulfate (Ephedrine 50 Mg/Ml Sdv) 10 mg IVPUSH Q5M PRN PRN Reason: Hypotension Oxytocin/Sodium Chloride (Oxytocin 30 Unit/500 Ml-Ns) 30 unit in 500 mls @ 999 mls/hr IV TITRATE [facility] Tranexamic Acid 1,000 mg/ (Sodium Chloride) 110 mls @ 660 mls/hr IV ONETIME PRN PRN Reason: Bleeding Lactated Ringer's (Ringers, Lactated) 1,000 mls @ 150 mls/hr IV ASDIRECTED [facility] Last Admin: 02/13/21 00:45 Dose: 150 mls/hr Documented by: Lactated Ringer's (Ringers, Lactated) 1,000 mls @ 500 mls/hr IV BOLUS JEEVAN Lactated Ringer's (Ringers, Lactated) 1,000 mls @ 125 mls/hr IV ASDIRECTED [facility] Ibuprofen (Ibuprofen 800 Mg Tab) 800 mg PO Q8H PRN PRN Reason: mild pain or fever Last Admin: 02/15/21 08:10 Dose: 800 mg Documented by: Lidocaine HCl (Lidocaine 1% 50 Ml Mdv) 50 ml INJECT ONETIME PRN PRN Reason: Laceration repair Nalbuphine HCl (Nalbuphine 10 Mg/1 Ml Vial) 10 mg IVPUSH Q1H PRN PRN Reason: Pain (severe 7-10) Ondansetron HCl (Ondansetron 4 Mg/2 Ml Sdv) 4 mg IVPUSH Q6H PRN PRN Reason: Nausea/Vomiting Last Admin: 02/12/21 11:50 Dose: 4 mg Documented by: Ondansetron HCl (Ondansetron 4 Mg/2 Ml Sdv) 4 mg IVPUSH Q4H PRN PRN Reason: Nausea/Vomiting Oxycodone/Acetaminophen (Acetaminophen/Oxycodone 325-5 Mg Tab) 1 tab PO Q4H PRN PRN Reason: Pain (severe 7-10) Last Admin: 02/15/21 08:11 Dose: 1 tab Documented by: Oxycodone/Acetaminophen (Acetaminophen/Oxycodone 325-5 Mg Tab) 2 tab PO Q4H PRN PRN Reason: Pain (severe 7-10) Oxytocin (Oxytocin 10 Units/1 Ml Sdv) 10 unit IM ASDIRECTED PRN PRN Reason: Excessive Vaginal Bleeding Phenylephrine HCl (Phenylephrine/Normal Saline 100 Mcg/Ml 10 Ml Syringe) 0.1 mg IVPUSH Q5M PRN PRN Reason: Hypotension Simethicone (Simethicone 80 Mg Tab.Chew) 160 mg PO QID [facility] Last Admin: 02/15/21 06:12 Dose: Not Given Documented by: Sodium Chloride (Sodium Chloride 0.9% 10 Ml Syringe) 10 ml FLUSH ASDIRECTED PRN PRN Reason: Keep Vein Open Sodium Chloride (Sodium Chloride 0.9% 2.5 Ml Syringe) 2.5 ml FLUSH ASDIRECTED PRN PRN Reason: Keep Vein Open Sodium Chloride (Sodium Chloride 0.9% 10 Ml Sdv) 10 ml IV ASDIRECTED PRN PRN Reason: IV Use Terbutaline Sulfate (Terbutaline 1 Mg/Ml Sdv) 0.25 mg SUBCUT ASDIRECTED PRN PRN Reason: Tacysystole Discontinued Medications Carboprost Tromethamine (Carboprost Tromethamine 250 Mcg/1 Ml Amp) 250 mcg IM ASDIRECTED PRN PRN Reason: Post Hemorrhage Cefazolin Sodium (Cefazolin 1 Gm Vial) Confirm Administered Dose 2 gm .ROUTE .STK-MED ONE Stop: 02/12/21 19:50 Cefazolin Sodium (Cefazolin 1 Gm Vial) Confirm Administered Dose 2 gm .ROUTE .STK-MED ONE Stop: 02/12/21 21:40 Citric Acid/Sodium Citrate (Citric Acid/Sodium Citrate Solution 30 Ml Cup) 30 ml PO ONETIME ONE Stop: 02/12/21 21:44 Last Admin: 02/13/21 00:21 Dose: Not Given Documented by: Fentanyl (Fentanyl 100 Mcg/2 Ml Sdv) Confirm Administered Dose 200 mcg .ROUTE .STK-MED ONE Stop: 02/12/21 18:31 Last Admin: 02/12/21 20:55 Dose: Not Given Documented by: Fentanyl (Fentanyl 100 Mcg/2 Ml Sdv) Confirm Administered Dose 100 mcg .ROUTE .STK-MED ONE Stop: 02/12/21 19:47 Fentanyl (Fentanyl 100 Mcg/2 Ml Sdv) Confirm Administered Dose 100 mcg .ROUTE .STK-MED ONE Stop: 02/12/21 21:43 Oxytocin/Sodium Chloride (Oxytocin 30 Unit/500 Ml-Ns) 30 unit in 500 mls @ 2 mls/hr IV TITRATE [facility]EE[facility]; Protocol Last Titration: 02/12/21 19:04 Dose: 0 munits/min, 0 mls/hr Documented by: Ropivacaine (Naropin 0.2%) Confirm Administered Dose 200 mls @ as directed .ROUTE .STK-MED ONE Stop: 02/12/21 18:31 Last Admin: 02/12/21 20:55 Dose: Not Given Documented by: Sodium Chloride (Normal Saline) Confirm Administered Dose 20 mls @ as directed .ROUTE .STK-MED ONE Stop: 05/25/21 19:50 Sodium Chloride (Normal Saline) Confirm Administered Dose 20 mls @ as directed .ROUTE .STK-MED ONE Stop: 02/12/21 21:40 Cefazolin Sodium/Dextrose 2 gm (/ Premix) 50 mls @ 100 mls/hr IV ONETIME ONE Stop: 02/12/21 22:12 Last Admin: 02/13/21 00:21 Dose: Not Given Documented by: Ketorolac Tromethamine (Ketorolac 30 Mg/Ml Sdv) Confirm Administered Dose 30 mg .ROUTE .STK-MED ONE Stop: 02/12/21 19:46 Ketorolac Tromethamine (Ketorolac 30 Mg/Ml Sdv) Confirm Administered Dose 30 mg .ROUTE .STK-MED ONE Stop: 02/12/21 21:40 Ketorolac Tromethamine (Ketorolac 30 Mg/Ml Sdv) 30 mg IVPUSH Q6H [facility]EE[facility] Stop: 02/13/21 23:01 Last Admin: 02/13/21 23:42 Dose: 30 mg Documented by: Methylergonovine Maleate (Methylergonovine 0.2 Mg/1 Ml Amp) 0.2 mg IM ASDIRECTED PRN PRN Reason: Post Hemorrhage Misoprostol (Misoprostol 200 Mcg Tab) 200 mcg PO ONETIME PRN PRN Reason: Post Hemorrhage Misoprostol (Misoprostol 25 Mcg (1/4 Of 100 Mcg) Tab) 25 mcg VAG Q4H PRN PRN Reason: Cervical Ripening Last Admin: 02/12/21 10:17 Dose: 25 mcg Documented by: Morphine Sulfate (Morphine Pf 10 Mg/10 Ml Sdv) Confirm Administered Dose 10 mg .ROUTE .STK-MED ONE Stop: 02/12/21 19:42 Morphine Sulfate (Morphine Pf 10 Mg/10 Ml Sdv) Confirm Administered Dose 10 mg .ROUTE .STK-MED ONE Stop: 02/12/21 21:42 Nalbuphine HCl (Nalbuphine 10 Mg/1 Ml Vial) 5 mg IVPUSH Q3H PRN PRN Reason: Pruritis Stop: 02/13/21 22:19 Ondansetron HCl (Ondansetron 4 Mg/2 Ml Sdv) Confirm Administered Dose 4 mg .ROUTE .STK-MED ONE Stop: 02/12/21 19:46 Ondansetron HCl (Ondansetron 4 Mg/2 Ml Sdv) Confirm Administered Dose 4 mg .ROUTE .STK-MED ONE Stop: 02/12/21 21:40 Oxytocin (Oxytocin 10 Units/1 Ml Sdv) Confirm Administered Dose 20 unit .ROUTE .STK-MED ONE Stop: 02/12/21 19:42 Sterile Water (Water For Irrigation,Sterile 1,000 Ml Container) 1,000 ml IRR ASDIRECTED PRN PRN Reason: delivery Sugammadex Sodium (Sugammadex Sodium 200 Mg/2 Ml Vial) Confirm Administered Dose 200 mg .ROUTE .STK-MED ONE Stop: 02/12/21 21:33 - Infant Interaction Disposition, : in Room with Family Interaction: Holding Infant Feeding: Breastfed Infant; Nursed Well Support Person: Mother, Significant Other - Recovery Exam Fundal Tone: Firm Fundal Level: 1 Fingerbreadths Below Umbilicus Fundal Placement: Midline Lochia Amount: Scant Episiotomy/Laceration: None Bladder Status: Voiding Urinary Elimination: Voided - Exam General: Alert, Oriented Neck: Supple Lungs: Normal Respiratory Effort GI/Abdominal Exam: Soft, Non-Tender, No Distention Extremities: Non-Tender Skin: Warm, Dry, Intact Wound/Incisions: Healing Well Neurological: No New Focal Deficit Psy/Mental Status: Alert, Normal Affect, Normal Mood - Problem List & Annotations (1) S/P primary low transverse SNOMED Code(s): 966486474, 70284662, 161743573, 844498489, 152369543 Code(s): Z98.891 - HISTORY OF UTERINE SCAR FROM PREVIOUS SURGERY Status: Acute Current Visit: Yes (2) Gestational hypertension SNOMED Code(s): 270459966 Code(s): O13.9 - GESTATIONAL HTN W/O SIGNIFICANT PROTEINURIA, UNSP TRIMESTER Status: Acute Current Visit: Yes - Problem List Review Problem List Initiated/Reviewed/Updated: Yes - My Orders Last 24 Hours: My Active Orders 02/15/21 08:20 Ready for Discharge [RC] PER UNIT ROUTINE - Assessment Assessment:: 26yo s/p 1LTCS, POD#3 - Plan Plan:: 1. Continue routine care. 2. Monitor BP due to gestational hypertension. 3. Discharge home today with incision check in 2 weeks. Reviewed discharge instructions/precautions. All questions answered.
== END 2021-02-15 12:42 | disposition home or self-care (01) | DRG 788 ==
LOC: MW.OB 21:01 → MW.OBCHECK 21:01 → MW.OB 21:05 → OBSVTOIN 02-12 21:43 → MW.OB 02-13 02:24
PROVIDERS: ADMIT Obstetrics & Gynecology; ATTEND Obstetrics & Gynecology
PROC: 10D00Z1 Extraction of Products of Conception, Low, Open Approach (ICD-10-PCS; principal; 2021-02-12)
PROC: 3E0R3BZ Introduction of Anesthetic Agent into Spinal Canal, Percutaneous Approach (ICD-10-PCS; 2021-02-12)
PROC: 00HU33Z Insertion of Infusion Device into Spinal Canal, Percutaneous Approach (ICD-10-PCS; 2021-02-12)
DX: O13.4 Gestational [pregnancy-induced] hypertension without significant proteinuria, complicating childbirth (principal); O32.1XX0 Maternal care for breech presentation, not applicable or unspecified; Z3A.39 39 weeks gestation of pregnancy; Z37.0 Single live birth
CPT/HCPCS: 01967; 36415; 51702; 59025; 59200; 80053; 82570; 82803; 84156; 84550; 85014; 85018; 85027; 86592; 86850; 86900; 86901; A9270-GY; J0595; J0690; J1885; J2270; J2405; J2590; J3010; J3490; J7120